=== PATIENT | female | born 1985 | race Caucasian/White ===

== ENCOUNTER 2016-12-19 17:20 | Emergency (ER) | payer OTHER ==
[~2016-12-19] VITALS: Wt 63.4 kg
[~2016-12-19 17:20] MED LIST: DENIES
[2016-12-19] MEDS ORDERED: LIDOCAINE 2%/EPI MPF (SDV) 20 ML VIAL INJ STA (18:31)
[2016-12-19] MEDS ORDERED: HYDROCODONE/APAP (5/325) TAB PO STA (18:31)
[2016-12-19] MEDS ORDERED: DIPHTH/TET/ACEL PERTUSS (ADULT) 0.5 ML VIAL IM ONE (19:00)
[2016-12-19] MEDS ORDERED: CEPH-443 PO (19:06)
--- NOTE | 2016-12-19 19:09 | ERD ---
ER Documentation Chief Complaint Date/Time DATE: 12/19/16 TIME: 19:07 Chief Complaint LEFT LOWER LEG LACERATION FROM STEPPING IN A POOL FILTER. BLEEDING CONTRLED HPI Patient is a 31-year-old female who presents with laceration to the left lower extremity she sustained today while she was hiking. Patient states she fell and hit a pool and she suffered a laceration. She is unsure of her last tetanus vaccination. She has 8 out of 10 throbbing pain at the site of her laceration however she is able to ambulate. Denies retained foreign body possibility. ROS All systems reviewed and are negative except as per history of present illness. Medications Home Meds Active Scripts Cephalexin* (Keflex*) 500 Mg Capsule, 500 MG PO QID for 7 Days, CAP Prov:TANVI LAZO PA-C 12/19/16 Reported Medications [Denies] No Conflict Check 12/08/10 Allergies Allergies: Coded Allergies: No Known Drug Allergies (Verified Allergy, Unknown, 12/19/16) PMhx/Soc Medical and Surgical Hx: pt denies Medical Hx, pt denies Surgical Hx History of Surgery: No Anesthesia Reaction: No Hx Neurological Disorder: No Hx Respiratory Disorders: No Hx Cardiac Disorders: No Hx Psychiatric Problems: No Hx Miscellaneous Medical Probl: No Hx Alcohol Use: No Hx Substance Use: No Hx Tobacco Use: No Smoking Status: Never smoker FmHx Family History: No diabetes Physical Exam Vitals Vital Signs Date Time Temp Pulse Resp B/P Pulse Ox O2 Delivery O2 Flow Rate FiO2 12/19/16 17:23 98.1 100 21 137/74 98 Physical Exam Const: [] Head: Atraumatic Eyes: Normal Conjunctiva ENT: Normal External Ears, Nose and Mouth. Neck: Full range of motion..~ No meningismus. Resp: Clear to auscultation bilaterally Cardio: Regular rate and rhythm, no murmurs Abd: Soft, non tender, non distended. Normal bowel sounds Skin: Left lower extremity on the anterior upper arenas approximately 2 cm below the knee there is a semicircular laceration approximately 3 cm in length, no evidence of retained foreign body Results 24 hrs Current Medications Medications (Trade) Dose Ordered Sig/Elder Route PRN Reason Start Time Stop Time Status Last Admin Dose Admin Diphtheria/ Tetanus/Acell Pertussis (Adacel) 0.5 ml ONCE ONCE IM 12/19/16 19:00 12/19/16 19:01 DC 12/19/16 18:44 Lidocaine/ Epinephrine (Xylocaine 2%/ Epi Mpf(Sdv)) 20 ml ONCE STAT INJ 12/19/16 18:31 12/19/16 18:32 DC Acetaminophen/ Hydrocodone Bitart ([place] (5/325)) 1 tab ONCE STAT PO 12/19/16 18:31 12/19/16 18:32 DC 12/19/16 18:43 Procedures/MDM Patient presents with lower leg laceration. She is given a tetanus vaccination. The skin edges of the laceration were infiltrated with 1% lidocaine . The laceration was irrigated with copious amounts of normal saline. The wound was prepped with Betadine. On examination under direct light, there was no foreign body seen. The laceration was repaired with simple interrupted sutures, 4 total.After repair, there was no continuing bleeding on repair and there did not appear to be any complication related to repair. The patient tolerated the procedure well and the wound was appropriately dressed and bandaged. I recommended the patient return in 2 days for a wound check and 7 -10 days for removal of sutures. Patient was given prescription for Keflex. Patient counseled regarding my diagnostic impression and care plan. Prior to discharge all questions answered. Pt agrees with treatment plan and understands strict return precautions. Pt is instructed to follow up with primary care provider within 24-48 hours. Precautionary instructions provided including instructions to return to the ER if not improving or for any worsening or changing symptoms or concerns. Departure Diagnosis: Primary Impression: Laceration Condition: Stable Patient Instructions: Suture Care, Laceration, All Additional Instructions: Call your primary care doctor TOMORROW for an appointment during the next 1-2 days.See the doctor sooner or return here if your condition worsens before your appointment time. Follow up with your physician to remove the stitches:For Face wounds 5-7 days.For Elsewhere on the body 7-10 days. TANVI LAZO PA-C Dec 19, 2016 19:09
== END 2016-12-19 19:31 | disposition home or self-care (01) ==
LOC: FTE 17:20
DX: S81.012A Laceration without foreign body, left knee, initial encounter (principal); W16.032A Fall into swimming pool striking wall causing other injury, initial encounter; Y92.34 Swimming pool (public) as the place of occurrence of the external cause; Z23 Encounter for immunization
CPT/HCPCS: 90471; 90715